=== PATIENT | female | born 1975 | race African-American/Black ===

== ENCOUNTER 2018-08-09 08:49 | Observation (INO) ==
[2018-08-09] MEDS ORDERED: ASPIRIN 325 MG TABLET PO STA (09:10)
[2018-08-09] MEDS ORDERED: METOPROLOL TARTRATE 5 MG/5 ML VIAL IV STA (09:16)
[2018-08-09 09:43] LABS: Apearance,Urine CLEAR (Clear); Bacteria,Urine Occasional /HPF (Few); Basophils % 0.5 % (0.0-0.8); Bilirubin,Urine Negative (Negative); Blood, Urine Small mg/dL (Negative); Eosinophils % 0.7 % (0.00-10.9); Glucose,Urine (UA) Negative (Negative); Hematocrit 39.4 VOL% (35.7-47.0); Hemoglobin 12.2 GM/DL (12.0-16.0); Hyaline Casts,Urine 1 /LPF (0-3); Immature Granulocytes % 0.2 %; Immature Granulocytes Absolute 0.01 #; Ketones,Urine Negative (Negative); Lymphocytes # 1.1 10*3/uL (1.4-4.0); Lymphocytes % 26.3 % (21.3-54.2); Mean Corpuscular Hemoglobin 27 PG (27-34); Mean Corpuscular Volume 88.5 FL (87-102); Mean Platelet Volume 12.1 FL (9.6-12.0); Monocytes # 0.3 10*3/uL (0.11-0.8); Monocytes % 6.5 % (1.7-12.7); Neutrophils # 2.7 10*3/uL (1.4-7.4); Neutrophils % 65.8 % (38.7-73.9); Nitrite,Urine Negative (Negative); Platelet Count 211 T/CUMM (130-400); Protein,Urine Negative; RBC,Urine 1 /HPF (0-4); Red Blood Count 4.45 MC/CUMM (3.8-5.5); Red Cell Distribution Width 13.5 % (9.3-17.3); Squamous Epithelial Cell,Urine Occasional /HPF (0-10); Urine Color Colorless (Yellow); Urine Specific Gravity 1.004 (1.001-1.035); Urine Urobilinogen < 2.0 EU/DL (0.2-1.0); WBC,Urine 1 /HPF (0-6); White Blood Count 4.1 T/CUMM (4-12)
[2018-08-09 09:48] LABS: Barbiturates Screen,Urine Negative (Negative); Benzodiazepines Screen,Urine Negative (Negative); Cannabinoid Screen,Urine Negative (Negative); Opiate Screen,Urine Negative (Negative); Phencyclidine Screen,Urine Negative (Negative)
[2018-08-09 09:49] LABS: PT Patient Result 10.4 SECS; Partial Thromboplastin Time 25.9 SECS (0-40)
[2018-08-09 10:03] LABS: Albumin 3.6 G/DL (3.4-5.0); Bilirubin,Total 0.5 MG/DL (0.2-1.0); Calcium 8.9 MG/DL (8.5-10.1); Osmolality,Calculated 280.1 MOS/KG (273-304); Potassium 3.6 MMOL/L (3.5-5.1); Total Protein 7.3 G/DL (6.4-8.3)
[2018-08-09] MEDS ORDERED: PROMETHAZINE 25 MG/1 ML VIAL IM STA ×2 (10:10→10:20)
[2018-08-09] MEDS ORDERED: ONDANSETRON 4 MG/2 ML VIAL IV PRN (12:19)
[2018-08-09] MEDS ORDERED: MORPHINE 4 MG/1 ML VIAL IV PRN (12:19)
[2018-08-09] MEDS ORDERED: ENOXAPARIN 40 MG/0.4 ML SYRINGE SUBCUT SCH (12:30)
[2018-08-09] MEDS ORDERED: ERGOCALCIFEROL 50,000 UNIT CAPSULE PO SCH (13:47)
[2018-08-09] MEDS ORDERED: ENOXAPARIN 100 MG/ML SYRINGE SUBCUT ONE (18:22)
[2018-08-09] MEDS ORDERED: ALUM/MAG/SIMETH/LIDO VISC 1:1 30 ML BOTTLE PO ONE (18:26)
[2018-08-09] MEDS: ACETAMINOPHEN 325 MG TABLET PO PRN (21:40)
[2018-08-10 05:28] LABS: Albumin 3.1 G/DL (3.4-5.0); Bilirubin,Total 0.8 MG/DL (0.2-1.0); Calcium 8.5 MG/DL (8.5-10.1); Potassium 3.8 MMOL/L (3.5-5.1); Total Protein 6.8 G/DL (6.4-8.3)
[2018-08-10 05:31] LABS: Risk Ratio 1.71; VLDL CHOLESTEROL 7.8 MG/DL
[2018-08-10] MEDS ORDERED: EZFE PO SCH (09:00)
[2018-08-10] MEDS: hydroCHLOROthiazide 12.5 MG CAPSULE PO SCH (09:44)
[2018-08-10] MEDS: DILTIAZEM CD 180 MG CAPSULE PO SCH (09:44)
[2018-08-10] MEDS: PANTOPRAZOLE 40 MG TABLET PO SCH (09:45)
[2018-08-10] MEDS: ACETAMINOPHEN 325 MG TABLET PO PRN (09:45)
[2018-08-10] MEDS ORDERED: MAGNESIUM SULF RIDER 2 GM in PREMIX 1 EACH IV PRN (12:38)
[2018-08-10] MEDS ORDERED: POTASSIUM CHLORIDE RIDER 10 MEQ in PREMIX 1 EACH IV PRN (12:38)
[2018-08-10] MEDS: LOVASTATIN 20 MG TABLET PO SCH (16:54)
[2018-08-11 04:40] LABS: Basophils % 0.3 % (0.0-0.8); Eosinophils % 0.9 % (0.00-10.9); Hematocrit 40.4 VOL% (35.7-47.0); Hemoglobin 12.6 GM/DL (12.0-16.0); Immature Granulocytes % 0.6 %; Immature Granulocytes Absolute 0.02 #; Lymphocytes # 1.6 10*3/uL (1.4-4.0); Lymphocytes % 49.8 % (21.3-54.2); Mean Corpuscular HGB Conc 31.2 GM/DL (32-36); Mean Corpuscular Hemoglobin 28 PG (27-34); Mean Corpuscular Volume 88.4 FL (87-102); Mean Platelet Volume 12.1 FL (9.6-12.0); Monocytes # 0.3 10*3/uL (0.11-0.8); Monocytes % 7.8 % (1.7-12.7); Neutrophils # 1.3 10*3/uL (1.4-7.4); Neutrophils % 40.6 % (38.7-73.9); Platelet Count 209 T/CUMM (130-400); Red Blood Count 4.57 MC/CUMM (3.8-5.5); Red Cell Distribution Width 13.4 % (9.3-17.3); White Blood Count 3.2 T/CUMM (4-12)
[2018-08-11 05:06] LABS: Hypochromasia 1+; Platelet Estimate Adequate
[2018-08-11 05:07] LABS: Albumin 3.2 G/DL (3.4-5.0); Bilirubin,Total 0.6 MG/DL (0.2-1.0); Calcium 8.9 MG/DL (8.5-10.1); Osmolality,Calculated 282.1 MOS/KG (273-304); Potassium 3.8 MMOL/L (3.5-5.1); Total Protein 6.8 G/DL (6.4-8.3)
[2018-08-11] MEDS: DILTIAZEM CD 180 MG CAPSULE PO SCH (08:51)
[2018-08-11] MEDS: PANTOPRAZOLE 40 MG TABLET PO SCH (08:52)
[2018-08-11] MEDS: hydroCHLOROthiazide 12.5 MG CAPSULE PO SCH (08:52)
[2018-08-11] MEDS ORDERED: SODIUM CHLORIDE 0.45% 1,000 ML IV SCH (10:00)
[2018-08-11] MEDS ORDERED: ASPIRIN 325 MG TABLET PO ONE (15:00)
[2018-08-11] MEDS ORDERED: DIAZEPAM 5 MG TABLET PO ONE (15:00)
[2018-08-11] MEDS ORDERED: diphenhydrAMINE CAP 25 MG CAPSULE PO ONE (15:00)
[2018-08-11] MEDS ORDERED: LIDOCAINE 1% 20 ML VIAL ONE (16:00)
[2018-08-11] MEDS ORDERED: HEPARIN/NACL 0.9% 2 UNITS/ML 1,000 ML IV ONE (16:00)
[2018-08-11] MEDS ORDERED: fentaNYL 100 MCG/2 ML VIAL ONE (16:05)
[2018-08-11] MEDS ORDERED: MIDAZOLAM 2 MG/2 ML VIAL ONE ×2 (16:05→16:35)
[2018-08-11] MEDS ORDERED: SODIUM BICARBONATE 2.4 MEQ/5 ML VIAL ONE (16:09)
[2018-08-11] MEDS: LOVASTATIN 20 MG TABLET PO SCH (17:39)
[2018-08-11 18:40] VITALS: BP 112/72
== END 2018-08-11 22:24 | disposition home or self-care (01) ==
LOC: N.ED 08:49 → N.EDINP 08:49 → N.2W 12:58 → N.TELES 17:40
PROVIDERS: ADMIT Internal Medicine; ATTEND Internal Medicine
PROC: CLCCHCL (ICD-10-PCS; 2018-08-11 15:45)